=== PATIENT | female | born 1970 | race African-American/Black ===

== ENCOUNTER 2017-10-10 10:02 | Observation (INO) | payer SELFPAY ==
[2017-10-10] MEDS ORDERED: Bacitracin Zinc 1 Packet ONE (10:46)
[2017-10-10] MEDS ORDERED: Morphine 4 MG/ML VIAL ONE (11:01)
[2017-10-10 11:21] LABS: #Eosinphils 0.2 thou/uL (0.0-0.7); #Lymphocytes 1.7 thou/uL (1.20-3.40); #Monocytes 0.5 thou/uL (0.11-0.59); #Neutrophils 3.5 thou/uL (1.40-6.50); %Basophils 0.4 % (0.0-1.0); %Eosinophils 3.7 % (0.0-10.0); %Lymphocytes 28.6 % (21.0-51.0); %Monocytes 8.6 % (0.0-10.0); %Neutrophils 58.8 % (42.0-75.0); Hemoglobin 14.1 g/dL (12.0-16.0); Mean Corpuscular HGB CONC 33.4 g/dL (32.0-36.0); Mean Corpuscular Hemoglobin 29.2 pg (27.0-31.0); Mean Corpuscular Volume 87.3 fl (81.0-99.0); Mean Platelet Volume 6.5 fL (7.4-10.4); Platelet Count 306 thou/uL (130-400); RBC Distribution Width 12.2 % (11.5-14.5); Red Blood Cell (RBC) Count 4.83 mill/uL (4.20-5.40); White Blood Cell (WBC) Count 5.9 thou/uL (4.8-10.8)
[2017-10-10 11:50] LABS: Anion Gap 12 mmol/L (10-20); BUN (Urea Nitrogen) 10 mg/dL (7.0-18.7); CK (CPK) 266 U/L (29-168); Calc. Creatinine Clearance 0 mL/min (70-130); Calcium 9.8 mg/dL (7.8-10.44); Carbon Dioxide 23 mmol/L (22-29); Chloride 107 mmol/L (98-107); Estimated GFR-MDRD Greater than 90; Glucose 111 mg/dL (70-105); Sodium 138 mmol/L (136-145)
[2017-10-10] MEDS ORDERED: Metoprolol Tartrate 25 MG TAB ONE ×2 (11:55→12:22)
--- NOTE | 2017-10-10 12:13 | RAD ---
RIGHT KNEE 4 VIEWS: Date: 10/10/17 HISTORY: Right knee injury. FINDINGS: There is moderate joint space loss at the medial compartment and prominent tricompartmental osteophyt osis. No acute fracture, dislocation, or fluid distention of the suprapatellar bursa. IMPRESSION: Osteoarthritis right knee. No acute osseous abnormalities are demonstrated. POS: [facility]
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
[2017-10-10] MEDS ORDERED: Adacel (T-DAP) 0.5 ML VIAL ONE (12:16)
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
[2017-10-10] MEDS ORDERED: Dextrose 50% Abboject 50 ML SYRINGE SLOW IVP PRN (17:21)
[2017-10-10] MEDS ORDERED: Dextrose 5% in Water 1,000 ML IV PRN (17:21)
[2017-10-10 17:54] VITALS: BMI 47.0
[2017-10-10] MEDS: Sodium Chloride 0.9% 1,000 ML IV SCH (18:25)
[2017-10-10] MEDS: Acetaminophen 500 MG TAB PO SCH ×2 (18:25→23:26)
[2017-10-10] MEDS: Famotidine 20 MG TAB PO SCH (20:11)
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
[2017-10-11] MEDS: traMADol HCl 50 MG TAB PO PRN ×2 (00:44→16:38)
[2017-10-11] MEDS: Acetaminophen 500 MG TAB PO SCH ×4 (04:56→22:48)
[2017-10-11] MEDS: Sodium Chloride 0.9% 1,000 ML IV SCH ×2 (04:56→10:20)
[2017-10-11 06:10] LABS: Anion Gap 10 mmol/L (10-20); BUN (Urea Nitrogen) 10 mg/dL (7.0-18.7); CK (CPK) 397 U/L (29-168); Calc. Creatinine Clearance 200 mL/min (70-130); Calcium 8.9 mg/dL (7.8-10.44); Carbon Dioxide 24 mmol/L (22-29); Chloride 107 mmol/L (98-107); Estimated GFR-MDRD Greater than 90; Glucose 108 mg/dL (70-105); Sodium 137 mmol/L (136-145)
[2017-10-11] MEDS: Famotidine 20 MG TAB PO SCH ×2 (08:15→21:38)
[2017-10-11] MEDS ORDERED: Ibuprofen 600 MG TAB PO PRN (11:08)
[2017-10-11] MEDS ORDERED: Triamterene/Hydrochlorothiazide 37.5 mg/25 mg Tablet PO SCH (12:00)
[2017-10-11] MEDS ORDERED: hydrALAZINE 20 MG/ML VIAL SLOW IVP PRN (16:58)
[2017-10-11] MEDS: traMADol HCl 50 MG TAB PO SCH ×2 (17:39→22:47)
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
[2017-10-12] MEDS: traMADol HCl 50 MG TAB PO SCH ×2 (04:42→10:50)
[2017-10-12] MEDS: Acetaminophen 500 MG TAB PO SCH ×2 (04:42→10:49)
[2017-10-12] MEDS ORDERED: Triamterene/Hydrochlorothiazide 37.5 mg/25 mg Tablet PO SCH (09:00)
[2017-10-12] MEDS: Famotidine 20 MG TAB PO SCH (09:18)
[2017-10-12 12:16] VITALS: BP 138/85; TEMP 98.6
== END 2017-10-12 13:55 | disposition home or self-care (01) ==
LOC: ERS 10:02 → SURG B 14:45
PROVIDERS: ADMIT Specialist; ATTEND Specialist
DX: S87.81XA Crushing injury of right lower leg, initial encounter (principal); S87.82XA Crushing injury of left lower leg, initial encounter; G89.11 Acute pain due to trauma; T14.8XXA Other injury of unspecified body region, initial encounter; I10 Essential (primary) hypertension; K21.9 Gastro-esophageal reflux disease without esophagitis; F32.9 Major depressive disorder, single episode, unspecified; F17.210 Nicotine dependence, cigarettes, uncomplicated; E66.01 Morbid (severe) obesity due to excess calories; Z68.42 Body mass index [BMI] 45.0-49.9, adult; Z79.899 Other long term (current) drug therapy; V09.00XA Pedestrian injured in nontraffic accident involving unspecified motor vehicles, initial encounter
CPT/HCPCS: 36415; 72100; 72170; 80048; 82550; 85025; 90471; 90715; 96361; 96374; G0378; G0390; G8978-GP-CI; G8979-GP-CI; G8980-GP-CI; J2270

== ENCOUNTER 2020-06-28 03:56 | Emergency (ER) | payer OTHER, SELFPAY ==
[2020-06-28 05:07] LABS: ALT (SGPT) 42 U/L (8-55); AST (SGOT) 41 U/L (5-34); Alkaline Phosphatase 88 U/L (40-110); Anion Gap 19 mmol/L (10-20); BUN (Urea Nitrogen) 10 mg/dL (9.8-20.1); Bilirubin, Total 0.6 mg/dL (0.2-1.2); Calc. Creatinine Clearance 0 mL/min (70-130); Calcium 8.5 mg/dL (7.8-10.44); Carbon Dioxide 18 mmol/L (22-29); Chloride 100 mmol/L (98-107); Globulin 3.6 g/dL (2.4-3.5); Glucose 156 mg/dL (70-105); Potassium 3.4 mmol/L (3.5-5.1); Protein, Total 7.6 g/dL (6.0-8.3); Sodium 134 mmol/L (136-145)
[2020-06-28 05:56] LABS: #Lymphocytes 1.2 thou/uL (1.20-3.40); #Monocytes 0.4 thou/uL (0.11-0.59); #Neutrophils 4.3 thou/uL (1.40-6.50); %Eosinophils 0.1 % (0.0-10.0); %Lymphocytes 19.9 % (21.0-51.0); %Monocytes 7.3 % (0.0-10.0); %Neutrophils 72.7 % (42.0-75.0); Hemoglobin 14.9 g/dL (12.0-16.0); Mean Corpuscular HGB CONC 31.1 g/dL (32.0-36.0); Mean Corpuscular Hemoglobin 27.5 pg (27.0-31.0); Mean Corpuscular Volume 88.3 fL (78.0-98.0); Platelet Count 201 thou/uL (130-400); RBC Distribution Width 12.7 % (11.5-14.5); RBC Morphology Normal; Red Blood Cell (RBC) Count 5.41 mill/uL (4.20-5.40); White Blood Cell (WBC) Count 5.9 thou/uL (4.8-10.8)
--- NOTE | 2020-06-28 08:26 | RAD ---
RADIOGRAPH CHEST 1 VIEW: DATE: 06/28/2020 TIME: 4:31 AM HISTORY: 50-year-old female status post syncope. Concern for aspiration. COMPARISON: 05/25/2014 FINDINGS: New subtle finding of small, faint ill-defined focal infiltrate at right lateral lung base, and quest ionably at left perihilar region. No pulmonary edema or gross consolidation. Cardiomediastinal silhouette is normal. No pneumothorax. IMPRESSION: Nonspecific minimal faint few small infiltrates. Recommend clinical correlation for possible COVID-19 mild pneumonia.
== END 2020-06-28 07:55 | disposition home or self-care (01) ==
LOC: ERS 03:56
DX: R55 Syncope and collapse (principal)
CPT/HCPCS: 36415; 71045; 80053; 83880; 84443; 84484; 85025; 93005

== ENCOUNTER 2021-11-16 11:33 | Emergency (ER) | payer OTHER, SELFPAY ==
[2021-11-16] MEDS ORDERED: Ketorolac Tromethamine 30 MG/ML VIAL ONE (11:59)
== END 2021-11-16 13:15 | disposition home or self-care (01) ==
LOC: ERS 11:33
DX: M25.511 Pain in right shoulder (principal); M25.551 Pain in right hip; I10 Essential (primary) hypertension; K21.9 Gastro-esophageal reflux disease without esophagitis; V43.52XA Car driver injured in collision with other type car in traffic accident, initial encounter
CPT/HCPCS: 72170; 96372; J1885

== ENCOUNTER 2023-05-27 22:09 | Observation (INO) | payer OTHER, SELFPAY ==
[2023-05-27 22:50] LABS: #Eosinphils 0.1 thou/uL (0.0-0.7); #Monocytes 0.8 thou/uL (0.11-0.59); #Neutrophils 5.2 thou/uL (1.40-6.50); %Basophils 0.1 % (0.0-1.0); %Eosinophils 1.2 % (0.0-10.0); %Lymphocytes 17.9 % (21.0-51.0); %Monocytes 11.2 % (0.0-10.0); %Neutrophils 69.2 % (42.0-75.0); Hematocrit 42.2 % (36.0-47.0); Hemoglobin 13.7 g/dL (12.0-16.0); Mean Corpuscular HGB CONC 32.5 g/dL (32.0-36.0); Mean Corpuscular Hemoglobin 28.7 pg (27.0-31.0); Mean Corpuscular Volume 88.3 fl (78.0-98.0); Mean Platelet Volume 9.1 fL (7.4-10.4); Platelet Count 252 10x3/uL (130-400); RBC Distribution Width 13.7 % (11.5-14.5); Red Blood Cell (RBC) Count 4.78 mill/uL (4.20-5.40); White Blood Cell (WBC) Count 7.5 10x3/uL (4.8-10.8)
[2023-05-27] MEDS ORDERED: Sodium Chloride 0.9% 100 ML ONE (23:05)
[2023-05-27] MEDS ORDERED: Acetaminophen 500 MG TAB ONE (23:05)
[2023-05-27] MEDS ORDERED: cefTRIAXone (ROCEPHIN) 2 GM VIAL ONE (23:05)
[2023-05-27 23:13] LABS: ALT (SGPT) 20 U/L (8-55); AST (SGOT) 22 U/L (5-34); Albumin 4.2 g/dL (3.5-5.0); Alkaline Phosphatase 69 U/L (40-110); Anion Gap 15 mmol/L (10-20); BUN (Urea Nitrogen) 6 mg/dL (9.8-20.1); Bilirubin, Total 0.7 mg/dL (0.2-1.2); Calc. Creatinine Clearance 0 mL/min (70-130); Carbon Dioxide 23 mmol/L (22-29); Chloride 101 mmol/L (98-107); Estimated GFR 69; Globulin 3.4 g/dL (2.4-3.5); Glucose 181 mg/dL (70-105); Potassium 3.3 mmol/L (3.5-5.1); Protein, Total 7.6 g/dL (6.0-8.3); Sodium 136 mmol/L (136-145)
[2023-05-27 23:17] LABS: Troponin I Less than 0.010 ng/mL (< 0.028)
[2023-05-27] MEDS ORDERED: Azithromycin 500 MG VIAL ONE (23:55)
[2023-05-28 00:01] LABS: SARS-CoV-2 NAA Rapid Test Not Detected (NotDetected)
[2023-05-28 00:02] LABS: Bacteria/HPF None Seen HPF (None Seen); Bilirubin Negative (Negative); Blood, Urine Negative (Negative); CAUTI Indications for Culture Fever or rigors; Clarity Turbid (Clear); Glucose, Urine (Dipstick) 70 mg/dL (Negative); Ketone, Urine Negative (Negative); Leukocyte Negative Leu/uL (Negative); Nitrite Negative (Negative); Protein, Urine (Dipstick) 100 mg/dL (Neg-Trace); RBC/HPF 0-3 HPF (0-3); Specific Gravity, Urine 1.023 (1.002-1.036); Squamous Epithelial 0-3 HPF (0-3); Urobilinogen 6 mg/dL (Less than 2)
[2023-05-28 00:04] LABS: Urine Culture Reflex No No
[2023-05-28] MEDS ORDERED: Azithromycin 500 MG VIAL ONE ×2 (00:07→20:36)
[2023-05-28] MEDS ORDERED: Ketorolac Tromethamine 30 MG/ML VIAL ONE (00:07)
[2023-05-28] MEDS ORDERED: Acetaminophen 325 MG TAB PO PRN (03:17)
[2023-05-28] MEDS ORDERED: Ondansetron ODT 4 MG TAB PO PRN (03:17)
[2023-05-28] MEDS ORDERED: Acetaminophen 650 MG Suppository PR PRN (03:17)
[2023-05-28] MEDS ORDERED: Ondansetron PF 4 MG/2 ML Vial IVP PRN (03:17)
[2023-05-28] MEDS ORDERED: HumaLOG 300 UNITS/3 ML VIAL SC PRN (03:27)
[2023-05-28] MEDS ORDERED: Dextrose 50% Abboject 50 ML SYRINGE SLOW IVP PRN (03:27)
[2023-05-28] MEDS ORDERED: Dextrose 5% in Water 1,000 ML IV PRN (03:27)
[2023-05-28] MEDS ORDERED: Glucagon 1 MG/ML KIT IM PRN (03:27)
[2023-05-28] MEDS ORDERED: Potassium Chloride 20 MEQ TAB PO SCH (03:30)
[2023-05-28 04:00] LABS: Troponin I Less than 0.010 ng/mL (< 0.028)
[2023-05-28 04:10] LABS: #Monocytes 0.9 thou/uL (0.11-0.59); %Basophils 0.3 % (0.0-1.0); %Eosinophils 0.1 % (0.0-10.0); %Lymphocytes 13.3 % (21.0-51.0); %Monocytes 10.7 % (0.0-10.0); %Neutrophils 75.2 % (42.0-75.0); Hematocrit 40.8 % (36.0-47.0); Mean Corpuscular HGB CONC 31.9 g/dL (32.0-36.0); Mean Corpuscular Hemoglobin 28.8 pg (27.0-31.0); Mean Corpuscular Volume 90.3 fl (78.0-98.0); Mean Platelet Volume 9.2 fL (7.4-10.4); Platelet Count 224 10x3/uL (130-400); RBC Distribution Width 13.8 % (11.5-14.5); Red Blood Cell (RBC) Count 4.52 mill/uL (4.20-5.40)
[2023-05-28 04:37] VITALS: BMI 46.7
[2023-05-28 04:38] LABS: Anion Gap 17 mmol/L (10-20); BUN (Urea Nitrogen) 6 mg/dL (9.8-20.1); Calc. Creatinine Clearance 161 mL/min (70-130); Calcium 8.3 mg/dL (7.8-10.44); Carbon Dioxide 20 mmol/L (22-29); Chloride 105 mmol/L (98-107); Estimated GFR 81; Glucose 142 mg/dL (70-105); Potassium 3.8 mmol/L (3.5-5.1); Sodium 138 mmol/L (136-145)
[2023-05-28 07:02] LABS: Troponin I Less than 0.010 ng/mL (< 0.028)
[2023-05-28] MEDS ORDERED: Iopamidol 370 76% 100 ML VIAL ONE (10:05)
[2023-05-28] MEDS: Triamterene/Hydrochlorothiazide 37.5 mg/25 mg Tablet PO SCH (10:29)
[2023-05-28] MEDS: Metoprolol Tartrate 25 MG TAB PO SCH ×2 (10:29→20:47)
[2023-05-28] MEDS ORDERED: metFORMIN 850 MG TAB PO SCH ×2 (10:45→17:00)
[2023-05-28 19:22] LABS: Legionella Urinary Ag Negative (Negative); Strep pneumo Urine Ag NEGATIVE (NEGATIVE)
[2023-05-28] MEDS ORDERED: cefTRIAXone\\ROCEPHIN 2 GM in Sodium Chloride 0.9% 100 ML IVPB SCH (21:00)
[2023-05-28] MEDS ORDERED: Azithromycin 500 MG in Sodium Chloride 0.9% 250 ML 250 ML IVPB SCH (22:00)
[2023-05-29 05:05] LABS: #Eosinphils 0.1 thou/uL (0.0-0.7); #Monocytes 0.7 thou/uL (0.11-0.59); #Neutrophils 2.5 thou/uL (1.40-6.50); %Basophils 0.2 % (0.0-1.0); %Eosinophils 1.7 % (0.0-10.0); %Lymphocytes 36.7 % (21.0-51.0); %Monocytes 13.4 % (0.0-10.0); %Neutrophils 47.4 % (42.0-75.0); Hematocrit 39.5 % (36.0-47.0); Hemoglobin 12.6 g/dL (12.0-16.0); Mean Corpuscular HGB CONC 31.9 g/dL (32.0-36.0); Mean Corpuscular Hemoglobin 28.3 pg (27.0-31.0); Mean Corpuscular Volume 88.6 fl (78.0-98.0); Mean Platelet Volume 9.2 fL (7.4-10.4); Platelet Count 251 10x3/uL (130-400); RBC Distribution Width 13.8 % (11.5-14.5); Red Blood Cell (RBC) Count 4.46 mill/uL (4.20-5.40); White Blood Cell (WBC) Count 5.2 10x3/uL (4.8-10.8)
[2023-05-29 06:09] LABS: Anion Gap 15 mmol/L (10-20); BUN (Urea Nitrogen) 7 mg/dL (9.8-20.1); Calc. Creatinine Clearance 161 mL/min (70-130); Calcium 8.9 mg/dL (7.8-10.44); Carbon Dioxide 24 mmol/L (22-29); Chloride 99 mmol/L (98-107); Estimated GFR 81; Glucose 116 mg/dL (70-105); Magnesium 1.9 mg/dL (1.6-2.6); Potassium 3.3 mmol/L (3.5-5.1); Sodium 135 mmol/L (136-145)
[2023-05-29] MEDS ORDERED: Potassium Chloride 20 MEQ TAB PO SCH (07:45)
[2023-05-29] MEDS: Metoprolol Tartrate 25 MG TAB PO SCH (09:00)
[2023-05-29] MEDS ORDERED: Citalopram 20 MG TAB PO SCH (09:00)
[2023-05-29] MEDS ORDERED: Saccharomyces boulardii 250 MG CAP PO SCH (09:00)
[2023-05-29] MEDS: Triamterene/Hydrochlorothiazide 37.5 mg/25 mg Tablet PO SCH (09:01)
[2023-05-29 09:06] VITALS: BP 140/80; TEMP 98.7
== END 2023-05-29 11:13 | disposition home or self-care (01) ==
LOC: ERS 22:09 → 2SE 05-28 03:03
PROVIDERS: ADMIT Family Medicine; ATTEND Internal Medicine
DX: J18.9 Pneumonia, unspecified organism (principal); J96.01 Acute respiratory failure with hypoxia; R00.0 Tachycardia, unspecified; E87.6 Hypokalemia; I10 Essential (primary) hypertension; E11.9 Type 2 diabetes mellitus without complications; Z79.84 Long term (current) use of oral hypoglycemic drugs; Z90.710 Acquired absence of both cervix and uterus; Z79.899 Other long term (current) drug therapy
CPT/HCPCS: 36415; 36416; 51701; 71045; 71275; 80048; 80053; 81001; 83605; 83735; 83880; 84145; 84484; 85025; 87040; 87086; 87449; 87804; 87899; 93005; 96361; 96365; 96367; 96372; 96376; G0378; J0456; J0696; J1650; J1885; J3490; J7050; Q9967; U0002